=== PATIENT | female | born 1950 | race Caucasian/White ===

== ENCOUNTER → 2017-12-16 | Outpatient (CLI) | payer MEDICARE, OTHER ==
[~2017-12-16] MED LIST: VALIUM2 MG PO
== END | disposition home or self-care (01) ==
LOC: CDC 14:44
DX: Z01.810 Encounter for preprocedural cardiovascular examination (principal); M19.042 Primary osteoarthritis, left hand; M67.442 Ganglion, left hand; M79.642 Pain in left hand; R94.31 Abnormal electrocardiogram [ECG] [EKG]
CPT/HCPCS: 93000